=== PATIENT | male | born 1960 | race Hispanic/Latino ===

== ENCOUNTER 2016-08-30 09:16 | Day surgery (SDC) | payer OTHER ==
[~2016-08-30] VITALS: Ht 180.3 cm; Wt 78.4 kg
--- NOTE | 2016-08-30 08:35 | PCM.HPANE ---
Patient Data Surgeon Admitting Provider: Attending Provider:Ger Luna MD Primary Care Physician:Lavon Other Provider:Susy Neal Anesthesia Reason for Visit Right Inguinl Hernia Ht/WT & BMI Height (Feet): 5 Height (Inches): 11 Weight (Kilograms): 78.4 Body Mass Index 24.00 Allergies Coded Allergies: No Known Allergies (Verified Allergy, Unknown, 08/29/16) Past Anesthesia History Anesthesia History: Denies:: Abnormal Airway, Anesthesia Reactions, Difficult Intubation, Fam Anesthesia Reaction, Fam Malignant Hypertherm, Malignant Hyperthermia Diabetes History Hx Diabetes?: No MRSA MRSA: No Medications Blood Thinner: Aspirin, Plavix Hypertension Medication: Yes Home Meds Incl Beta Jon: Yes Reported Medications Aspirin (Aspir-Low)81 Mg Tablet.dr81 Mg PO DAILY #1 BOTTLE Ref 0 08/02/13 Atorvastatin (Lipitor)40 Mg Wybqds93 Mg PO QPM 30 Days Ref 0 08/02/13 Clopidogrel 75 Mg Bchebg42 Mg PO DAILY 30 Days Ref 0 08/02/13 Lisinopril 10 Mg Tablet2.5 Mg PO DAILY 30 Days Ref 0 08/02/13 Metoprolol Tartrate 50 Mg Vcivbr51 Mg PO BIDWM 30 Days Ref 0 08/02/13 Nitroglycerin SL 0.4 Mg Tab.subl0.4 Mg SL PRN For Chest Pain 08/02/13 History History of ENT Problems?: No HEENT History: Denies:: Abnormal Airway Difficult Intubation Dysphagia Hearing Problem Denture Type: None Teeth Condition: Within Normal Limits Hx of Heart Problems?: Yes Cardiovascular History: Positive for:: Cardiac Surgery (HRT CATH 2012, 2015) Chest Pain ([place] W/STENTS, 08/2015 [place] ST[place].) Coronary Artery Disease Hypertension Denies:: AICD Atrial Fibrillation Pacemaker Valvular Heart Disease Hx of Respiratory Problem?: No Respiratory History: Denies:: Asthma COPD Cough Hemoptysis Pneumonia Tuberculosis Hx Neurologic Problems?: Yes Neurological History: Positive for:: Headaches Denies:: CVA Dementia Hx of GI Problems?: No Hx of Problems?: No Male Hx: Denies:: Prostate Problems Scrotal Mass Testicular Surgery Skin History: Positive for:: History Skin Disorders? (SEBORRHEIC DERMATITIS) Denies:: Pressure Ulcers Hx Musculoskeletal Problems?: No Musculoskeletal History: Denies:: Joint Replacement Hx of Psycho/Social Problems?: No Psycho Social History: Denies:: Anxiety Hx Depression Hx Surgeries?: Yes (ANGIOGRAM PROCEDURE, APPY, HERNIA REPAIR) Hx Any Other Health Problems?: Yes Other History: Denies:: Thyroid Disease History Blood Transfusions: Denies:: Blood Transfuse Reaction Blood Transfusions Hx Diabetes: No Hx Alcohol Use: Yes (NOT MUCH)Hx Substance Use: NoHave You Smoked inLast 12 mo : No Stop/Bang S-Snoring: Do You Snore Loudly: No T-Tired: feel tired, fatigued: No O-Obsered: Observed not breath: No P-Blood Pressure: treated: Yes B- Body Mass Index > 35 kg/m2: No A- Age over 50: Yes N- Neck Large Circumference: No G- Gender Male: Yes LATASHA Total Score: 3 Risk Assessment Category Category 1A: Patient has history of documented sleep apnea, and HAS NOT received any narcotic, sedative or anesthesia administration during this stay. Category 1B: Patient has history of documented sleep apnea, and HAS received any narcotic , sedative or anesthesia administration during this stay Category 2: Patient has SUSPECTED Obstructive Sleep Apnea, and HAS received any narcotic , sedative or anesthesia administration during this stay. Category 3: Patient has SUSPECTED Obstructive Sleep Apnea and HAS NOT received narcotic, sedative or anesthesia administration during this stay. Category 4: Outpatient in Procedural Areas with known sleep apnea or who screen positive for High Risk via the STOP/BANG questionnaire. Exam Exam General Appearance: Alert, Oriented X3, Cooperative HEENT/AIRWAY: MP 2, Neck Movement (from), Mouth Opening (wnl) Lungs: Clear to Auscultation Heart: Exam Unremarkable Plan Impression Patient chart reviewed, patient interviewed and anesthestic plan with risks, benefits, and alternatives discussed, and informed consent obtained. ASA Physical Status: ASA2 Mod Systemic Disease Anesthetic Plan: MAC Bene/Risks/Altern/Consents: Yes HP Complete Prior to Induction: Yes Other Patient prefers sedation over GA Carl Garland MD Aug 30, 2016 08:35
[~2016-08-30 09:16] MED LIST: ASPI81TA53 PO; CLOP75TA28 PO; CeFAZolin Inj 2 GM in IV Premix 1 EACH IV SCH; LIP40 PO; LISI10TA2 PO; Lactated Ringer's 1,000 ML IV SCH; METO50TA3 PO; NITR0.4T6 SL
[2016-08-30] MEDS ORDERED: Propofol 10,000 mCg/mL 20 mL Inj ONE (09:17)
[2016-08-30] MEDS ORDERED: fentaNYL-PF 50 mCg/mL 2 mL Inj ONE (09:17)
[2016-08-30 09:46] VITALS: BP 120/68; PULSE 50; RESP 14; O2SAT 99
[2016-08-30] MEDS ORDERED: Lactated Ringer's 1,000 ML IV ONE (09:53)
[2016-08-30] MEDS ORDERED: Lactated Ringer's 500 ML IV PRN (12:19)
[2016-08-30] MEDS ORDERED: Lactated Ringer's 1,000 ML IV SCH (12:19)
[2016-08-30] MEDS ORDERED: Dexamethasone 4 mg/mL Inj IVPUSH PRN (12:20)
[2016-08-30] MEDS ORDERED: fentaNYL-PF 50 mCg/mL 2 mL Inj IVPUSH PRN (12:20)
[2016-08-30] MEDS ORDERED: EPHEDrine Sulfate 50 mg/mL Inj IVPUSH PRN (12:20)
[2016-08-30] MEDS ORDERED: Labetalol 5 mg/mL 4 mL Inj IV PRN (12:20)
[2016-08-30] MEDS ORDERED: Atropine 0.4 mg/mL Inj IVPUSH PRN (12:20)
[2016-08-30] MEDS ORDERED: hydrALAZINE 20 mg/mL Inj IVPUSH PRN (12:20)
[2016-08-30] MEDS ORDERED: Phenylephrine 10,000 mCg/mL Inj IVPUSH PRN (12:20)
[2016-08-30] MEDS ORDERED: Ondansetron 2 mg/mL 2 mL Inj IVPUSH PRN (12:20)
[2016-08-30] MEDS ORDERED: HYDROmorphone 1 mg/mL Inj IVPUSH PRN (12:20)
[2016-08-30] MEDS ORDERED: Bupivacaine-MPF 0.25% 30 mL Inj INFILTRATE ONE (12:33)
[2016-08-30] MEDS ORDERED: Lidocaine 1%-Epi 1:100,000 20 mL Inj INJ ONE ×2 (12:47→13:13)
[2016-08-30 13:20] VITALS: BP 100/60; PULSE 67; RESP 16; O2SAT 96
[2016-08-30] MEDS ORDERED: oxyCODONE-Acetamin 5-325 mg Tablet PO PRN (13:20)
--- NOTE | 2016-08-30 13:26 | PCM.ANEP1 ---
Post Anesthesia PACU Phase 1 Assessment Vital Signs Vital Signs Date Time Temp Pulse Resp B/P Pulse Ox O2 Delivery O2 Flow Rate FiO2 08/30/16 09:46 36.6 50 14 120/68 99 Room Air Anesthetic Administered: MAC Level of Alertness: Awake, talking SCHAFER's with Equal Strength: Yes Pain: No Nausea or Vomiting: No CV Function & Hydration Stable: No Airway Device: Lungs: Normal Air Movement PACU Phase 2 Assessment Complications: No Follow up Care: No Patient Instructions Provided: N/A Carl Garland MD Aug 30, 2016 13:25
[2016-08-30 13:30] VITALS: BP 112/64; PULSE 57; RESP 14; O2SAT 98
[2016-08-30 14:05] VITALS: BP 112/74; PULSE 44; RESP 16; O2SAT 98
--- NOTE | 2016-08-30 22:22 | OP ---
[address] [address] OPERATIVE REPORT PATIENT: CAROLE ALONZO : 1960 MR#: [id number] ADMIT: 08/30/2016 JOB ID: [id number] DATE OF SURGERY: 08/30/2016 ANESTHESIA: MAC with local. PREOPERATIVE DIAGNOSIS(ES): Symptomatic right inguinal hernia. POSTOPERATIVE DIAGNOSIS(ES): Symptomatic right inguinal hernia (indirect). OPERATION: Open repair of right inguinal hernia using mesh. SURGEON: Dr. Ger Luna. CUTTING TABLE OPERATOR FIRST: Alfred Briceno PA-C (the specimen preparation assistant was required for the safe and timely completion of the case). COMPLICATIONS: None. ESTIMATED BLOOD LOSS: Less than 5 mL. CONDITION: Satisfactory. SPECIMEN: None. FINDINGS: There was a small indirect inguinal hernia. This was repaired with a piece of soft polypropylene mesh. INDICATIONS/SIGNIFICANT HISTORY: The patient is a 55-year-old man who had noticed some right groin pain and subsequently developed a lump. Pain was intermittent. He was referred to [facility] and diagnosed with inguinal hernia and elected to undergo repair. OPERATIVE TECHNIQUE: The patient was taken to the operating room and placed in the supine position. General anesthesia was administered and perioperative antibiotics were given. The abdomen and groin were prepped and draped in standard surgical fashion and a procedural pause was performed. Local anesthetic was injected. A right inguinal incision was made. Dissection was carried down through skin and subcutaneous tissue. The aponeurosis of the external oblique was opened in line with the fibers. The cord was circumferentially dissected free. The floor appeared intact though somewhat lax. The cord was then investigated and a small indirect sac was identified. This was reduced. A piece of soft polypropylene mesh was then trimmed to the appropriate size and shape, and secured in place using interrupted 2-0 PDS sutures. The result was a nice reinforcement of the fold with recreation of the internal ring. The aponeurosis of the external oblique was then closed with running 3-0. [place]'s closed with 3-0 followed by a running 4-0 Monocryl for the skin. The entire procedure was well tolerated without complication.
== END 2016-08-30 23:59 | disposition home or self-care (01) ==
LOC: SAS 09:16
PROVIDERS: ATTEND General Practice
DX: K40.90 Unilateral inguinal hernia, without obstruction or gangrene, not specified as recurrent (principal); I25.10 Atherosclerotic heart disease of native coronary artery without angina pectoris; I10 Essential (primary) hypertension; R00.1 Bradycardia, unspecified; E78.5 Hyperlipidemia, unspecified; I25.2 Old myocardial infarction; Z95.5 Presence of coronary angioplasty implant and graft; Z79.82 Long term (current) use of aspirin; Z79.02 Long term (current) use of antithrombotics/antiplatelets
CPT/HCPCS: 49505; C1781; J0690; J3010; J7120